=== PATIENT | male | born 1960 | race Caucasian/White ===

== ENCOUNTER 2019-02-16 14:09 | Emergency (ER) | payer OTHER ==
[~2019-02-16] VITALS: Ht 188 cm; Wt 142.9 kg
[2019-02-16] MEDS ORDERED: GLIPIZIDE ER2.5 MG PO (14:44)
[2019-02-16] MEDS ORDERED: LISINOPRIL10 MG PO (14:45)
[2019-02-16] MEDS ORDERED: FLUOXETINE HCL60 MG PO (14:45)
== END 2019-02-16 18:16 | disposition home or self-care (01) ==
LOC: ED 14:09
DX: R42 Dizziness and giddiness (principal); E11.9 Type 2 diabetes mellitus without complications; I10 Essential (primary) hypertension; Z87.891 Personal history of nicotine dependence; Z79.899 Other long term (current) drug therapy
CPT/HCPCS: 70496; 70498; 80053; 84484; 85025; 99284-25; Q9967

== ENCOUNTER 2024-01-13 10:06 | Day surgery (SDC) | payer OTHER ==
[~2024-01-13] VITALS: Ht 188 cm; Wt 125.2 kg
[~2024-01-13 10:06] MED LIST: FLUOXETINE HCL60 MG PO; GLIPIZIDE ER2.5 MG PO; IBLOOD GLUCOSE TEST STRIP 1 EA TEST VI PRN; LACTATED RINGER'S 1,000 ML IV SCH; LIDOCAINE HCL 1% 5 ML SDV INJ ONE; LISINOPRIL10 MG PO; MIDAZOLAM HCL 5 MG/5 ML VIAL IV PRN; PIOGLITAZONE HC30 MG PO; ROSUVASTATIN CA10 MG PO; TRULICITY3 MG/0.5 M SQ; fentaNYL citrate 100 MCG/2 ML VIAL IV PRN
[2024-01-13 10:41] VITALS: BP 147/69
[2024-01-13] MEDS ORDERED: MIDAZOLAM HCL 5 MG/5 ML VIAL ONE (11:37)
[2024-01-13] MEDS ORDERED: fentaNYL citrate 100 MCG/2 ML VIAL ONE (11:38)
--- NOTE | 2024-01-13 13:01 | NUR ---
01/13/24 1301 Nayeli Rivera 1240- PT ARRIVES TO PACU, LEFT LATERAL POSITION. PT IS DROWSY AND CONVERSES WITH STAFF. O2 AT 3L PER NC, BREATHING EVEN AND NON LABORED. ABD ROUND AND FIRM, ENCOURAGED PT TO PASS GAS. PT C/O GAS PAINS, DENIES NAUSEA. LR INFUSING TO RW IV. ALL MONITORS IN PLACE. 1245- PT MOVED TO ROOM AIR, ROLLED TO BACK. PT REPORTS PAIN WORSENING. ENCOURAGED PT TO KEEP TRYING TO PASS GAS, REASSURED PAIN WOULD GET BETTER WITH PASSING GAS. 1250- DR ONTIVEROS AT BEDSIDE TO DISCUSS FINDINGS, ALSO ENCOURAGED PT TO PASS GAS. PT REPORTS PAIN NOW 10/10 AND WANTS HEAD OF BED STRAIGHT UP. 1255- PT LAID BACK DOWN, UNABLE TO PASS GAS, ROLLED TO RIGHT SIDE. 1258- PT WANTING TO SIT BACK UP, ENCOURAGED TO ROLL TO LEFT SIDE AND BRING KNEES UP. PT WAS ABLE TO PASS SOME GAS.
[2024-01-13 13:04] VITALS: BP 146/72
--- NOTE | 2024-01-14 14:25 | OR ---
[facility] [address], [place] [address] Signed DATE OF OPERATION: 01/13/2024 SURGEON: Jeovanny Ontiveros MD PREOPERATIVE DIAGNOSIS: Colon screening. POSTOPERATIVE DIAGNOSES: 1. 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 2. Small polyp right colon and sigmoid. 3. Minimal diverticula. PROCEDURES: 1. Total colonoscopy to cecum with intubation of ileum and biopsy of ileum and ileocecal valve. 2. Cold morcellation excision of polyp x2. ANESTHESIA: Intravenous sedation; fentanyl 150 mcg and Versed 6 mg. INDICATION: This 63-year-old white man is a patient of Dr. Winter Lares. He was scheduled to have colonoscopy for screening by wa in 2021, but canceled related to an unexpected in the family. He has had long-standing diarrhea, which he attributed to post cholecystectomy causes. He has not been on Questran or other similar intervention. He is admitted at this time to undergo colonoscopy. He understands the risk of bleeding, infection, and perforation. FINDINGS: The prep was good. Complete colonoscopy was undertaken of the cecum and intubation of the ileum was accomplished as well. The ileum itself appeared normal. Biopsies were taken nevertheless. The cecum itself was normal, though the ileocecal valve had hyperplastic changes of the mucosa, which was also biopsied. There was a small polyp of the right colon and the proximal sigmoid, both of which were excised. There were minimal diverticula. The rectum was normal. DESCRIPTION OF PROCEDURE: The patient was brought to the endoscopy suite and placed in the lateral decubitus position, given intravenous sedation to the point of slurred speech and nystagmus. Digital rectal examination was normal. Electronically Signed By: JEOVANNY ONTIVEROS MD 01/14/24 1425 PATIENT NAME: HARRIET CROW OPERATIVE REPORT DATE OF : 58 REPORT #: [id number] PHYSICIAN: JEOVANNY ONTIVEROS MD PCP: WINTRE LARES MD REPORT IS CONFIDENTIAL AND NOT TO BE RELEASED WITHOUT AUTHORIZATION [facility] [address], [place] [address] Signed An Olympus video colonoscope was passed in the rectum and manipulated throughout the colon noting a few scattered diverticula. The scope was ultimately advanced to the cecum. The ileocecal valve appeared hyperplastic. Narrow-band imaging did not more fully distinguish those findings. Biopsies were taken of the ileocecal valve and ultimately manipulation of the scope into the ileum was accomplished. The ileum itself was normal. Biopsies were obtained there as well given his symptoms. The scope was withdrawn. Examination undertaken more fully. In the right colon, there was a small polyp, this was excised with cold morcellation technique. Further withdrawal of the scope showed another small polyp of the proximal sigmoid. This was excised with cold morcellation technique also. Further withdrawal allowed for retroflexed view of the rectum, which was essentially normal. Scope was removed. The patient was taken to the recovery room in good condition. CONCLUDING DIAGNOSIS: There is no clinical evidence of colitis. Occult colitis is certainly possible though less likely. There were two small polyps, both excised. The ileum was normal. PLAN: We will prescribe Questran 1 g p.o. q.i.d. tapering to the lowest effective dose for symptom control of diarrhea which very likely is related to prior cholecystectomy. He will return to the ongoing care of Dr. Winter Lares. If his diarrhea problem persists, I am happy to see him again. MD NAVIN Strong/VIJAYAL /[id number] cc: Winter Lares MD Copies: WINTER LARES DMD ~ Electronically Signed By: JEOVANNY ONTIVEROS MD 01/14/24 1425 PATIENT NAME: HARRIET CROW OPERATIVE REPORT DATE OF : 58 REPORT #: [id number] PHYSICIAN: JEOVANNY ONTIVEROS MD PCP: WINTER LARES MD REPORT IS CONFIDENTIAL AND NOT TO BE RELEASED WITHOUT AUTHORIZATION
--- NOTE | 2024-01-17 12:36 | PATH ---
[facility] [address], [place] [address] Signed SPECIMEN(S): A ILEOCECAL VALVE BIOPSY SPECIMEN(S): B ILEUM BIOPSY SPECIMEN(S): C ASCENDING POLYP SPECIMEN(S): D SIGMOID POLYP SPECIMEN SOURCE: A. ILEOCECAL VALVE BIOPSY B. ILEUM BIOPSY C. ASCENDING POLYP D. SIGMOID POLYP CLINICAL HISTORY: Screening. Rule out adenoma ileocecal valve FINAL PATHOLOGIC DIAGNOSIS: A. Colon, ileocecal valve, biopsy: - Colonic mucosa with no significant pathologic changes B. Ileum, biopsy: - Small bowel mucosa with no significant pathologic changes C. Colon, ascending, polypectomy: - Tubular adenoma D. Colon, sigmoid, polypectomy: - Tubular adenoma BRP MICROSCOPIC EXAMINATION: Histologic sections of all submitted blocks are examined by light microscopy. These findings, together with the gross examination, support the pathologic diagnosis. GROSS DESCRIPTION: A. The specimen, labeled and designated "Small, R, ileocecal Bowel biopsy rule out adenoma," is received in formalin and consists of seven mooney soft tissue fragments, ranging from 0.1-0.4 cm. Entirely submitted in (A1). B. The specimen, labeled and designated "Small, R, ileum biopsy," is received in formalin and consists of one mooney soft tissue fragment, 0.5 cm. Entirely submitted in (B1). C. The specimen, labeled and designated "Small, R, ascending polyp," is received in formalin and consists of three mooney soft tissue fragments, ranging from 0.1-0.4 cm. Entirely submitted in (C1). PATIENT NAME: HARRIET CROW PATHOLOGY DATE OF : 58 REPORT #: [id number] PHYSICIAN: CLARA VALLECILLO PCP: WINTER LARES MD REPORT IS CONFIDENTIAL AND NOT TO BE RELEASED WITHOUT AUTHORIZATION [facility] [address] [place], [place] [address] Signed D. The specimen, labeled and designated "Small, R, sigmoid polyp," is received in formalin and consists of multiple mooney soft tissue fragments, 0.1-0.3 cm. Entirely submitted in (D1). AB (under the direct supervision of a pathologist) The Gross Description was prepared using a voice recognition system. The report was reviewed for accuracy; however, sound-alike word errors, addition and/or deletions may occur. If there is any question about this report, please contact Client Services. ADDITIONAL NOTES: Immunohistochemical and/or in situ hybridization studies if performed in this case included appropriate positive controls that reacted as expected. This test was developed and its performance characteristics determined by [facility]. It has not been cleared or approved by the U.S. Food and Drug Administration. The FDA has determined that such clearance or approval is not necessary. This test is used for clinical purposes. It should not be regarded as investigational or for research. [facility] is certified under the Clinical Laboratory Improvement Amendments of 1988 (CLIA) as qualified to perform high complexity clinical laboratory testing. PERFORMING LABORATORY: Technical component was performed by [facility], [address] [place] [id number] (CLIA# [id number]). Professional interpretation was performed by [facility], [address] [address] (CLIA# [id number]). Diagnostician: Ramsey Malhotra MD Pathologist Electronically Signed 01/17/2024 Copies: ~ PATIENT NAME: HARRIET CROW PATHOLOGY DATE OF : 58 REPORT #: [id number] PHYSICIAN: CLARA PATHOLOGY PCP: WINTER LARES MD REPORT IS CONFIDENTIAL AND NOT TO BE RELEASED WITHOUT AUTHORIZATION
== END 2024-01-13 13:25 | disposition home or self-care (01) ==
LOC: DS 10:06
PROVIDERS: ATTEND Surgery
PROC: 0DBN8ZZ Excision of Sigmoid Colon, Via Natural or Artificial Opening Endoscopic (ICD-10-PCS; 2024-01-13)
PROC: 0DBB8ZX Excision of Ileum, Via Natural or Artificial Opening Endoscopic, Diagnostic (ICD-10-PCS; 2024-01-13)
PROC: 0DBF8ZZ Excision of Right Large Intestine, Via Natural or Artificial Opening Endoscopic (ICD-10-PCS; principal; 2024-01-13 11:30)
DX: Z12.11 Encounter for screening for malignant neoplasm of colon (principal); D12.2 Benign neoplasm of ascending colon; D12.5 Benign neoplasm of sigmoid colon; K57.30 Diverticulosis of large intestine without perforation or abscess without bleeding; K52.9 Noninfective gastroenteritis and colitis, unspecified; E11.9 Type 2 diabetes mellitus without complications; I10 Essential (primary) hypertension; E66.01 Morbid (severe) obesity due to excess calories; Z68.34 Body mass index [BMI] 34.0-34.9, adult; Z79.84 Long term (current) use of oral hypoglycemic drugs; Z79.899 Other long term (current) drug therapy; Z98.2 Presence of cerebrospinal fluid drainage device; Z88.8 Allergy status to other drugs, medicaments and biological substances; Z90.49 Acquired absence of other specified parts of digestive tract
CPT/HCPCS: 99153; G0500; J2250; J3010; J7121

== ENCOUNTER 2024-05-10 18:27 | Emergency (ER) | payer OTHER, MEDICARE ==
[~2024-05-10] VITALS: Ht 188 cm; Wt 126.0 kg
[~2024-05-10 18:27] MED LIST changes: -IBLOOD GLUCOSE TEST STRIP 1 EA TEST VI PRN; -LACTATED RINGER'S 1,000 ML IV SCH; -LIDOCAINE HCL 1% 5 ML SDV INJ ONE; -MIDAZOLAM HCL 5 MG/5 ML VIAL IV PRN; -fentaNYL citrate 100 MCG/2 ML VIAL IV PRN
[2024-05-10 19:46] LABS: BASOPHILS 0.5 % (0-2); HEMATOCRIT 48.3 % (35.0-50.0); HEMOGLOBIN 16.6 g/dL (12.0-18.0); LYMPHOCYTES 8.3 % (24-44); MCH 31.4 (27-36); MCHC 34.4 g/dl (30-36); MCV 91.2 fl (81-99); MONOCYTES 7.1 % (0-12); NEUTROPHILS 83.1 % (39-80); PLATELET COUNT 280 K/uL (140-440); RDW 14.5 (10.5-15.0)
[2024-05-10 20:00] LABS: ALBUMIN 4.1 g/dL (3.4-5.0); ALBUMIN/GLOBULIN RATIO 1.14 (1.1-2.4); ALCOHOL, MEDICAL <3 ng/dL (<3); ALKALINE PHOSPHATASE 76 U/L (46-116); ALT (SGPT) 28 U/L (14-59); ANION GAP 12.2 (7-21); AST (SGOT) 22 U/L (15-37); BILIRUBIN, TOTAL 0.5 mg/dL (0.2-1.0); BUN/CREATININE RATIO 11.34 (6.0-28.6); CALCIUM 9.1 mg/dL (8.5-10.1); CARBON DIOXIDE 28 mmol/L (21-32); CHLORIDE 102 mmol/L (98-107); CREATINE KINASE 267 U/L (39-308); CREATININE, SERUM 0.97 mg/dL (0.70-1.30); GLOMERULAR FILTRATION RATE,EST 87 mL/min (>60); POTASSIUM 4.2 mmol/L (3.5-5.1); PROTEIN, TOTAL 7.7 g/dL (6.4-8.2); UREA NITROGEN 11 mg/dL (7-18)
[2024-05-10 21:10] LABS: BILIRUBIN, URINE NEGATIVE (negative); BLOOD/HGB, URINE NEGATIVE (Negative); KETONE, URINE NEGATIVE (Negative); LEUK ESTERASE, URINE NEGATIVE (negative); NITRITE, URINE NEGATIVE (negative)
[2024-05-10 21:25] LABS: AMPHETAMINES, URINE NEGATIVE (NEGATIVE); BARBITURATES, URINE NEGATIVE (NEGATIVE); BENZODIAZEPINE, URINE NEGATIVE (NEGATIVE); BUPRENORPHINE, URINE NEGATIVE (NEGATIVE); CANNABINOID, URINE NEGATIVE (NEGATIVE); COCAINE, URINE NEGATIVE (NEGATIVE); ECSTASY, URINE NEGATIVE (NEGATIVE); FENTANYL, URINE NEGATIVE (NEGATIVE); METHADONE, URINE NEGATIVE (NEGATIVE); OPIATES, URINE NEGATIVE (NEGATIVE); OXYCODONE, URINE NEGATIVE (NEGATIVE); PHENCYCLIDINE, URINE NEGATIVE (NEGATIVE)
[2024-05-10 21:58] VITALS: BP 163/72
== END 2024-05-10 22:00 | disposition home or self-care (01) ==
LOC: ED 18:27
PROVIDERS: Internal Medicine
DX: S16.1XXA Strain of muscle, fascia and tendon at neck level, initial encounter (principal); S00.03XA Contusion of scalp, initial encounter; S20.219A Contusion of unspecified front wall of thorax, initial encounter; I10 Essential (primary) hypertension; E11.9 Type 2 diabetes mellitus without complications; E78.00 Pure hypercholesterolemia, unspecified; V89.2XXA Person injured in unspecified motor-vehicle accident, traffic, initial encounter; Z88.8 Allergy status to other drugs, medicaments and biological substances; Z79.899 Other long term (current) drug therapy; Z87.891 Personal history of nicotine dependence
CPT/HCPCS: 36415; 70450; 71260; 72125; 74177; 80053; 80307; 81003; 82550; 85025; 99284-25; G0480